=== PATIENT | female | born 1990 | race Caucasian/White ===

== ENCOUNTER → 2022-01-09 | Outpatient (CLI) | payer BC ==
[~2022-01-09] MED LIST: NORCO 5-325 TA1 EACH PO; ZOFRAN 4 MG TAB4 MG PO
== END ==
LOC: LAB 11:10
DX: O20.0 Threatened abortion (principal)
CPT/HCPCS: 36415; 84702

== ENCOUNTER → 2022-01-17 | Day surgery (SDC) | payer BC ==
[~2022-01-17] MED LIST changes: +ASPIRIN CHEWABL81 MG PO; +EFFEXOR XR 150150 MG PO; +HYDROCODON-ACE1 EAC4 PO; +IBU600 MG PO; +LABETALOL HCL100 MG PO; +LEVOTHYROXINE25 MC1 PO; +VALTREX1000 MG PO
[2022-01-17 06:23] LABS: HEMOGLOBIN 12.8 gm/dl (12.3-15.3); RED BLOOD COUNT 4.09 M/UL (4.00-5.10); WHITE BLOOD COUNT 9.3 K/UL (4.5-11.0)
== END | disposition home or self-care (01) ==
LOC: OR 05:32
PROVIDERS: Obstetrics & Gynecology
DX: O03.4 Incomplete spontaneous abortion without complication (principal); I10 Essential (primary) hypertension; Z88.0 Allergy status to penicillin; Z91.040 Latex allergy status
CPT/HCPCS: 81001; 85025; J1100; J1885; J2001; J2250; J2405; J2704; J2795; J3010; J7030